=== PATIENT | female | born 1970 | race Caucasian/White ===

== ENCOUNTER 2018-03-26 06:35 | Emergency (ER) | payer BC, OTHER ==
[2018-03-26 06:46] VITALS: BP 130/83; PULSE 66; RESP 20; TEMP 98
--- NOTE | 2018-03-26 07:24 | XR ---
EXAM: XR Right Shoulder Complete, 3 Views. CLINICAL HISTORY: Reason: Pain TECHNIQUE: 3 views of the right shoulder. COMPARISON: No relevant prior studies available. FINDINGS: Bones: No acute fracture. Joints: No dislocation. Soft tissues: Unremarkable. IMPRESSION: No fracture or dislocation.
[2018-03-26] MEDS ORDERED: KETOROLAC 60 MG/2 ML VIAL IM STA (07:37)
[2018-03-26] MEDS ORDERED: CYCLOBENZAPRINE 10MG STARTER 3 TAB BTL PO STA (07:37)
[2018-03-26] MEDS ORDERED: ACET/COD 300 MG/30 MG STARTER PACK 6 TAB BTL PO STA (07:37)
--- NOTE | 2018-03-26 07:42 | ED ---
Upper Extremity HPI - General Chief Complaint: Extremity Injury, Upper Stated Complaint: shoulder injury Time Seen by Provider: 03/26/18 07:03 Source: patient, RN notes reviewed, old records reviewed Mode of arrival: ambulatory Limitations: no limitations - History of Present Illness Initial Comments: Patient is a 47 year old female whom presnts today with complaints Right shoulder pain. Patient reports that she pulled her shoulder while lifting drywall and also the lifting groceries yesterdayy. Patient states that she had pain with sleeping. She reports she is unable to lift her shoulder above her head. - Related Data Home Medications Medication Instructions Recorded Confirmed Multivitamins, Thera [Multivitamin 1 tab PO DAILY 03/26/18 03/26/18 (formulary)] Previous Rx's Medication Instructions Recorded Ibuprofen 600 mg PO TID #20 tablet 03/26/18 Allergies Allergy/AdvReac Type Severity Reaction Status Date / Time No Known Allergies Allergy Verified 03/26/18 07:45 Review of Systems ROS Statement: Those systems with pertinent positive or pertinent negative responses have been documented in the HPI. ROS Other: All systems not noted in ROS Statement are negative. Past Medical History Past Medical History: No Reported History History of Any Multi-Drug Resistant Organisms: None Reported Past Surgical History: No Surgical Hx Reported Past Psychological History: No Psychological Hx Reported Smoking Status: Never smoker Past Alcohol Use History: Occasional Past Drug Use History: None Reported General Exam - General Exam Comments Initial Comments: well appearing 47 year old female, no distress. Limitations: no limitations General appearance: alert, in no apparent distress Head exam: Present: atraumatic, normocephalic, normal inspection Eye exam: Present: normal appearance, PERRL, EOMI. Absent: scleral icterus, conjunctival injection, periorbital swelling ENT exam: Present: normal exam, mucous membranes moist Neck exam: Present: normal inspection. Absent: tenderness, meningismus, lymphadenopathy Respiratory exam: Present: normal lung sounds bilaterally. Absent: respiratory distress, wheezes, rales, rhonchi, stridor Cardiovascular Exam: Present: regular rate, normal rhythm, normal heart sounds. Absent: systolic murmur, diastolic murmur, rubs, gallop, clicks GI/Abdominal exam: Present: soft, normal bowel sounds. Absent: distended, tenderness, guarding, rebound, rigid Extremities exam: Present: normal inspection, full ROM, normal capillary refill. Absent: tenderness, pedal edema, joint swelling, calf tenderness Right Shoulder Exam: Present: normal inspection, tenderness. Absent: full ROM ( unable to preform above the head task, positive apply scratch test. ) Upper Arm exam: Present: normal inspection Elbow exam: Present: normal inspection, full ROM Back exam: Present: normal inspection Neurological exam: Present: alert, oriented X3, CN II-XII intact Psychiatric exam: Present: normal affect, normal mood Course Vital Signs 03/26/18 06:41 Temperature 98.0 F Pulse Rate 66 Respiratory 20 Rate Blood Pressure 130/83 O2 Sat by Pulse 100 Oximetry Medical Decision Making - Medical Decision Making Patient is a 47 year old female whom presents with R shoulder injury after lifting drywall and later grocery. She felt a pop in her shoulder yesterday, and had pain with sleeping. 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 She has normal shoulder xray. Discussed likely rotator cuff injury due to recent stress over shoulder, and from chronic lifting at her job. She has been advised to follow up with ortho. Will DC with antiinflammatory medication. - Radiology Data Radiology results: report reviewed Normal shoulder Xray, no acute fracture or dislocation. Disposition Clinical Impression: Injury of right rotator cuff Disposition: HOME SELF-CARE Condition: Good Instructions (If sedation given, give patient instructions): Rotator Cuff Injury (ED) Additional Instructions: Patient advised to practice range of motion. Apply ice to arm and shoulder. Wear sling intermittently. Follow up with Dr. Martínez. Return to ED if any alarming signs or symptoms occur. Prescriptions: Ibuprofen 600 mg PO TID #20 tablet Is patient prescribed a controlled substance at d/c from ED?: No Referrals: None,Stated [Primary Care Provider] - 1-2 days Perfecto Sheridan DO [Doctor of Osteopathic Medicine] - 1-2 days Brian Martínez DO [Doctor of Osteopathic Medicine] - 1-2 days Time of Disposition: 07:38
== END 2018-03-26 07:56 | disposition home or self-care (01) ==
LOC: EC 06:35
DX: S46.001A Unspecified injury of muscle(s) and tendon(s) of the rotator cuff of right shoulder, initial encounter (principal); X50.1XXA Overexertion from prolonged static or awkward postures, initial encounter; Y93.89 Activity, other specified
CPT/HCPCS: 99284; 96372; 73030; J1885

== ENCOUNTER → 2018-07-13 | Outpatient (CLI) | payer BC ==
[2018-07-13 15:27] LABS: HCT 42.8 % (34.0-46.0); MCH 29.2 pg (25.0-35.0); MCHC 32.7 g/dL (31.0-37.0); MCV 89.5 fL (80.0-100.0); Mean Platelet Volume 7.2; Platelet Count 276 k/uL (150-450); RBC 4.78 m/uL (3.80-5.40); RDW 12.4 % (11.5-15.5)
[2018-07-13 18:57] LABS: Anion Gap 8.3 mmol/L (4.00-12.00); Calcium 9.3 mg/dL (8.7-10.3); Carbon Dioxide 27.7 mmol/L (21.6-31.8); Potassium 3.9 mmol/L (3.5-5.5)
== END | disposition home or self-care (01) ==
LOC: LABWHC1 14:54
PROVIDERS: ATTEND Podiatrist Foot & Ankle Surgery
DX: Z01.812 Encounter for preprocedural laboratory examination (principal)
CPT/HCPCS: 36415; 80048; 85027

== ENCOUNTER 2018-08-01 11:36 | Day surgery (SDC) | payer BC ==
[~2018-08-01 11:36] MED LIST: DEXAMETHASONE SOD PHOSPHATE 10 MG/ML 1 ML VIAL IV ONE; HYDROmorphone 0.5 MG/0.5 ML SYRINGE IVP PRN; LACTATED RINGERS 1,000 ML IV SCH; LIDOCAINE 1% 20 ML VIAL (10MG/ML) FOR IV START INTRADERMA PRN; ONDANSETRON 4 MG/2 ML VIAL IVP ONE; Pre Op ABX Message 1 EACH MISC MISCELLANE ONE; SCOPOLAMINE 1.5MG/72HR PATCH TRANSDERM ONE
[2018-08-01 12:14] VITALS: TEMP 97.5
[2018-08-01] MEDS ORDERED: PROPOFOL 10 MG/ML 20 ML VIAL IV ONE (14:07)
[2018-08-01] MEDS ORDERED: KETAMINE 10 MG/ML 20 ML VIAL ONE (14:07)
[2018-08-01] MEDS ORDERED: fentaNYL (PF) 50 MCG/ML 2 ML AMP ONE (14:07)
[2018-08-01] MEDS ORDERED: MIDAZOLAM 2 MG/2 ML VIAL ONE (14:07)
[2018-08-01] MEDS ORDERED: LIDOCAINE 1% INJ 10MG/ML (20 ML MDV) ONE (14:07)
[2018-08-01] MEDS ORDERED: BUPIVACAINE (PF) 0.25% 30 ML VIAL SQ ONE (14:39)
--- NOTE | 2018-08-01 14:53 | P.PCN ---
Date of Procedure: 08/01/18 Preoperative Diagnosis: Hypertrophied bone medial side distal interphalangeal joint fifth digit left foot Postoperative Diagnosis: Same Procedure(s) Performed: Tarsal phalangectomy fifth digit left foot distal interphalangeal joint Surgeon: Derick Manning Operative Findings: Unremarkable
--- NOTE | 2018-08-01 14:57 | P.OP ---
Date of Procedure: 08/01/18 Preoperative Diagnosis: I. Hypertropied bone fifth digit left foot Postoperative Diagnosis: Same Surgeon: Derick Manning Operative Findings: Unremarkable Description of Procedure: On the date of surgery the patient was taken the operating room in good condition placed on the operating table supine position where an IV started and adequate IV anesthetic agents were utilized. Anesthesia was then further supplemented with approximately 3 mL of 0.25% plain Marcaine given in digital block to the fifth digit the patient's left foot Patient's left foot and ankle were then prepped and draped in usual aseptic manner and over heavy web roll padding an ankle tourniquet was placed above the malleoli of the patient's left ankle At this point in time attention was directed to the patient's left foot where the left foot and ankle were elevated and exsanguinated of blood utilizing an Esmarch bandage and after approximately 1 minutes. A time the ankle tourniquet was inflated to approximately 250 mmHg at this time attention was directed to the dorsal medial side of the distal interphalangeal joint fifth digit left foot where an approximately 0.25 cm linear incision was made the incision was deepened via sharp dissection down through the level of subcutaneous tissue layers all neurovascular structures were identified isolated and were retracted At this point in time utilizing rotary bur hyperostosis present on the medial side distal interphalangeal joint was craterized. Throughout the surgical procedure copious amounts sterile saline solution was used to irrigate the surgical site. Edges were then coaptated and maintained utilizing 4-0 nylon simple interrupted suture Adaptic Kerlix fluffs four-inch conformer 4 inch Coban was used to form a compression dressing and the ankle tourniquet to the left ankle was deflated adequate hemostatic return seen in all digits of the patient's left foot
[2018-08-01 15:02] VITALS: RESP 18
[2018-08-01 15:24] VITALS: BP 124/67; PULSE 65
== END 2018-08-01 15:35 | disposition home or self-care (01) ==
LOC: OR 11:36
PROVIDERS: ATTEND Podiatrist Foot & Ankle Surgery
DX: M89.372 Hypertrophy of bone, left ankle and foot (principal); K21.9 Gastro-esophageal reflux disease without esophagitis; Z79.82 Long term (current) use of aspirin; Z79.899 Other long term (current) drug therapy; Z90.49 Acquired absence of other specified parts of digestive tract

== ENCOUNTER 2018-08-31 08:29 | Emergency (ER) | payer BC ==
[2018-08-31 08:47] VITALS: RESP 18; TEMP 98.2
--- NOTE | 2018-08-31 09:20 | XR ---
EXAMINATION TYPE: XR chest 2V DATE OF EXAM: 08/31/2018 COMPARISON: Prior chest x-ray 05/04/2012 HISTORY: Cough, congestion, pain TECHNIQUE: Frontal and lateral views of the chest are obtained. FINDINGS: Surgical clips are present in the right upper quadrant. There is bronchial wall thickening. Patchy density present in the right lower lobe. Heart size is stable. No pneumothorax or pleural eff usion. IMPRESSION: Findings suggest right lower lobe pneumonia. Follow-up recommended.
--- NOTE | 2018-08-31 09:23 | ED ---
URI HPI - General Chief Complaint: Upper Respiratory Infection Stated Complaint: Cough Source: patient Mode of arrival: ambulatory Limitations: no limitations - History of Present Illness Initial Comments: 3-year-old female presented for cough congestion and ear pain for 1 week. Patient states she has an upper respiratory symptoms for the past week. Denies fevers. Patient states her cough has been productive. Patient states that she presented to the ER due to persistent cough. Patient denies chest pain or pressure. Patient denies hemoptysis or leg swelling. Denies history of DVT/PE or TB. Remaining ROS (-). Upon arrival patient appears well, afebrile. oxygenating well, no signs of distress. - Related Data Home Medications Medication Instructions Recorded Confirmed Multivitamins, Thera [Multivitamin 1 tab PO DAILY 03/26/18 07/26/18 (formulary)] Previous Rx's Medication Instructions Recorded Ibuprofen 600 mg PO TID #20 tablet 03/26/18 Azithromycin [Zithromax Z-pack] 0 mg PO DIRECTED #6 tab 08/31/18 Benzonatate [Tessalon Perles] 100 mg PO TID 5 Days #15 cap 08/31/18 predniSONE 20 mg PO BID 5 Days #10 tab 08/31/18 Allergies Allergy/AdvReac Type Severity Reaction Status Date / Time No Known Allergies Allergy Verified 08/31/18 08:43 Review of Systems ROS Statement: Those systems with pertinent positive or pertinent negative responses have been documented in the HPI. ROS Other: All systems not noted in ROS Statement are negative. Past Medical History Past Medical History: No Reported History History of Any Multi-Drug Resistant Organisms: None Reported Past Surgical History: Cholecystectomy, Orthopedic Surgery, Tubal Ligation Additional Past Surgical History / Comment(s): R foot, L foot Past Psychological History: No Psychological Hx Reported Smoking Status: Never smoker Past Alcohol Use History: Occasional Past Drug Use History: None Reported General Exam - General Exam Comments Initial Comments: General: The patient is awake and alert, in no distress, and does not appear acutely ill. Eye: +3 mm pupils are equal, round and reactive to light, extra-ocular movements are intact. No nystagmus. There is normal conjunctiva bilaterally. No signs of icterus. No photophobia Ears, nose, mouth and throat: There are moist mucous membranes and no oral lesions. Oropharynx was not erythematous there is no tonsillar enlargement exudates or lesions. Uvula midline. Tympanic membranes are not erythematous or is no effusions bulging or retraction. No tenderness to palpation of the mastoid. No anterior cervical lymphadenopathy. Rhinorrhea, clear and bilateral nares. No tripoding, no drooling. Neck: The neck is supple, there is no tenderness or JVD. Cardiovascular: There is a regular rate and rhythm. No murmur, rub or gallop is appreciated. Respiratory: Lungs are clear to auscultation, respirations are non-labored, breath sounds are equal. No wheezes, stridor, rales, or rhonchi. No retractions or abdominal breathing. Gastrointestinal: Soft, non-distended, non-tender abdomen without masses or organomegaly noted. There is no rebound or guarding present. Bowel sounds are unremarkable. Musculoskeletal: Normal ROM, no tenderness. Strength 5/5. Sensation intact. Radial pulses equal bilaterally 2+. Neurological: A&O x 3. CN II-XII intact, There are no obvious motor or sensory deficits. Coordination appears grossly intact. Speech appears normal, no muffling. Skin: Skin is warm and dry and no rashes or lesions are noted. No extremity edema Psychiatric: Cooperative Limitations: no limitations Course Vital Signs 08/31/18 08/31/18 08/31/18 08:43 08:48 10:21 Temperature 98.2 F 98.2 F Pulse Rate 86 63 Respiratory 18 18 18 Rate Blood Pressure 103/57 96/38 O2 Sat by Pulse 97 99 Oximetry Medical Decision Making - Medical Decision Making 29-year-old female presented for cough and upper respiratory symptoms. Evidence of a right lower lobe pneumonia. Patient is afebrile nontoxic appearing well. No elevation of heart rate or hypoxia. Patient's lungs sounds overall. Clear there is no obvious consolidations audible. At this time do feel patient still for discharge with 2 with azithromycin. Patient was given a single dose of ceftriaxone emergency department prior to discharge. In addition patient is prescribed prednisone. Return parameters were discussed at length. Case discussed Dr. Ortega. Patient was discharged appearing well agreeable to plan return parameters and discharge at this time. Disposition Clinical Impression: Community acquired pneumonia, Right lower lobe pneumonia, Cough, Sore throat Disposition: HOME SELF-CARE Instructions (If sedation given, give patient instructions): Pneumonia (ED) Additional Instructions: Please use medication as discussed. Please follow-up with family doctor in the next 2 days. Please return to emergency room if the symptoms increase or worsen or for any other concerns. Prescriptions: predniSONE 20 mg PO BID 5 Days #10 tab Benzonatate [Tessalon Perles] 100 mg PO TID 5 Days #15 cap Azithromycin [Zithromax Z-pack] 0 mg PO DIRECTED #6 tab Is patient prescribed a controlled substance at d/c from ED?: No Referrals: Shiraz Hernandez MD [Primary Care Provider] - 1-2 days Time of Disposition: 09:39
[2018-08-31] MEDS ORDERED: cefTRIAXone 1,000 MG VIAL (IM USE) IM STA (09:36)
[2018-08-31 10:22] VITALS: BP 96/38; PULSE 63
== END 2018-08-31 10:22 | disposition home or self-care (01) ==
LOC: EC 08:29
DX: J18.1 Lobar pneumonia, unspecified organism (principal); J02.9 Acute pharyngitis, unspecified
CPT/HCPCS: 71046; 96372; 99283; J0696

== ENCOUNTER → 2018-10-19 | Outpatient (CLI) | payer BC ==
--- NOTE | 2018-10-19 11:10 | XR ---
EXAMINATION TYPE: XR knee complete LT DATE OF EXAM: 10/19/2018 CLINICAL HISTORY: Nontraumatic left knee pain TECHNIQUE: Three views of the left knee are obtained. COMPARISON: None. FINDINGS: There is no acute fracture/dislocation evident in left knee. The tri-compartment joint sp aces appear within normal limits. There is small superior patellar pole osteophyte is seen. The over lying soft tissue appears unremarkable. IMPRESSION: There is no acute fracture or dislocation in the left knee. Minimal patellofemoral arthr opathy.
== END | disposition home or self-care (01) ==
LOC: RADXRMAIN 10:28
PROVIDERS: ATTEND Family Medicine
DX: M12.862 Other specific arthropathies, not elsewhere classified, left knee (principal)

== ENCOUNTER 2021-04-01 07:51 | Day surgery (SDC) | payer BC ==
[2021-03-29 16:09] VITALS: BMI 28.5
[~2021-04-01 07:51] MED LIST changes: -DEXAMETHASONE SOD PHOSPHATE 10 MG/ML 1 ML VIAL IV ONE; -HYDROmorphone 0.5 MG/0.5 ML SYRINGE IVP PRN; +LIDOCAINE 1% (10MG/ML) FOR IV START INTRADERMA PRN; -LIDOCAINE 1% 20 ML VIAL (10MG/ML) FOR IV START INTRADERMA PRN; -ONDANSETRON 4 MG/2 ML VIAL IVP ONE; -Pre Op ABX Message 1 EACH MISC MISCELLANE ONE; -SCOPOLAMINE 1.5MG/72HR PATCH TRANSDERM ONE
[2021-04-01 08:18] VITALS: TEMP 97
[2021-04-01] MEDS ORDERED: PROPOFOL 10 MG/ML 20 ML VIAL IV ONE (09:26)
--- NOTE | 2021-04-01 09:27 | P.GSHP ---
History of Present Illness H&P Date: 04/01/21 Chief Complaint: Screening colonoscopy This a 50-year-old female who presents today for screening colonoscopy. Patient denies any significant GI complaints. Past Medical History Past Medical History: No Reported History Additional Past Medical History / Comment(s): CURRENT: CORN BETWEEN 4 AND 5 TOE OF LEFT FOOT History of Any Multi-Drug Resistant Organisms: None Reported Past Surgical History: Cholecystectomy, Orthopedic Surgery, Tubal Ligation Additional Past Surgical History / Comment(s): BILAT FOOT SX Past Anesthesia/Blood Transfusion Reactions: No Reported Reaction Smoking Status: Former smoker - Past Family History Father Family Medical History: Cancer Medications and Allergies Home Medications Medication Instructions Recorded Confirmed Type No Known Home Medications 03/29/21 04/01/21 History Allergies Allergy/AdvReac Type Severity Reaction Status Date / Time No Known Allergies Allergy Verified 04/01/21 08:29 Surgical - Exam Vital Signs Temp Pulse Resp BP Pulse Ox 97.0 F L 78 14 122/61 99 04/01/21 08:15 04/01/21 08:15 04/01/21 08:15 04/01/21 08:15 04/01/21 08:15 - General well developed, well nourished, no distress - Eyes PERRL - ENT normal pinna - Neck no masses - Respiratory normal expansion - Cardiovascular Rhythm: regular - Abdomen Abdomen: soft, non tender Assessment and Plan Assessment: Perform screening colonoscopy
--- NOTE | 2021-04-01 09:45 | P.OP ---
Date of Procedure: 04/01/21 Preoperative Diagnosis: Screening colonoscopy Postoperative Diagnosis: Mild diverticulosis Internal and external hemorrhoids Procedure(s) Performed: Colonoscopy Anesthesia: MAC Surgeon: Dima Austin Pathology: none sent Condition: stable Disposition: PACU Description of Procedure: Patient's placed on the endoscopy table in the lateral position. She received IV sedation. Digital rectal exam was performed which revealed internal and external hemorrhoids. The flexible colonoscope was then placed patient anus and passed throughout the entire colon. The ileocecal valve was visualized. The cecum, ascending and transverse colon appeared normal. The descending and sigmoid colon had mild diverticular changes. Scope was then brought back the rectum and this appeared normal. The scope was withdrawn through the anus and internal and external hemorrhoids noted. The scope was withdrawn for patient.
[2021-04-01 09:50] VITALS: RESP 16
[2021-04-01 10:04] VITALS: BP 101/61; PULSE 65
== END 2021-04-01 10:48 | disposition home or self-care (01) ==
LOC: ORWHC2ENDO 07:51
PROVIDERS: ATTEND Surgery
DX: Z12.11 Encounter for screening for malignant neoplasm of colon (principal); K57.30 Diverticulosis of large intestine without perforation or abscess without bleeding; K64.4 Residual hemorrhoidal skin tags; L84 Corns and callosities; Z90.49 Acquired absence of other specified parts of digestive tract; Z98.51 Tubal ligation status; Z98.890 Other specified postprocedural states; Z87.891 Personal history of nicotine dependence; K21.9 Gastro-esophageal reflux disease without esophagitis
CPT/HCPCS: 81025; J2704; G0121

== ENCOUNTER → 2021-04-08 | Outpatient (CLI) | payer BC ==
--- NOTE | 2021-04-09 13:21 | MM ---
Reason for exam: screening (asymptomatic). Last mammogram was performed 2 years and 8 months ago. Physical Findings: A clinical breast exam by your physician is recommended on an annual basis and results should be correlated with mammographic findings. MG Screening Mammo w CAD Bilateral CC and MLO view(s) were taken. XCCL view(s) were taken of the right breast. Prior study comparison: August 06, 2018, bilateral MG screening mammo w CAD. April 23, 2010, bilateral digital screening mammo w/CAD. The breast tissue is heterogeneously dense. This may lower the sensitivity of mammography. There is chronic nodularity bilaterally. There is no dominant lesion. No significant changes when compared with prior studies. ASSESSMENT: Benign, BI-RAD 2 RECOMMENDATION: Routine screening mammogram of both breasts in 1 year.
== END | disposition home or self-care (01) ==
LOC: RADMAMWWP 14:36
PROVIDERS: ATTEND Family Medicine
DX: Z12.31 Encounter for screening mammogram for malignant neoplasm of breast (principal)
CPT/HCPCS: 77067

== ENCOUNTER 2022-10-07 11:01 | Emergency (ER) | payer BC, OTHER ==
--- NOTE | 2022-10-07 11:37 | ED ---
Back Pain HPI - General Source: patient, RN notes reviewed Mode of arrival: wheelchair Limitations: no limitations - History of Present Illness MD Complaint: back pain <Jennifer Mercado - Last Filed: 10/07/22 11:40> - General Source: patient, RN notes reviewed Mode of arrival: wheelchair Limitations: no limitations <Yasmin Ferrer - Last Filed: 10/07/22 19:42> - General Chief Complaint: Back Pain/Injury Stated Complaint: INJURY [facility] Time Seen by Provider: 10/07/22 11:35 - History of Present Illness Initial Comments: This is a 51 year old female who presents to the emergency department for left lower back pain. States that this started at work today when she went to stand up. The pain is constant but worse with movement. Denies any loss of bowel/bladder control. (Jennifer Mercado) 51-year-old female presents emergency Department with chief complaint of left lower back pain. 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 She states that she stood up and had sudden pain in her left sided lower back. She states that the pain is nonradiating. It is worse with walking or movement of her left leg. She states that she was able to walk following this but it was painful. She denies any loss of bowel or bladder function, numbness, saddle anesthesia, fever. She denies any significant past medical history. No known medication ALLERGIES. (Yasmin Ferrer) - Related Data Home Medications Medication Instructions Recorded Confirmed Multivitamins, Thera [Multivitamin 1 tab PO DAILY 04/04/22 04/04/22 (formulary)] Previous Rx's Medication Instructions Recorded HYDROcodone/APAP 5-325MG [[place] 1 tab PO Q6HR PRN #28 tab 04/08/22 5-325] Cyclobenzaprine [Flexeril] 5 mg PO TID PRN #15 tablet 10/07/22 Allergies Allergy/AdvReac Type Severity Reaction Status Date / Time No Known Allergies Allergy Verified 10/07/22 11:38 Review of Systems ROS Other: All systems not noted in ROS Statement are negative. <Jennifer Mercado - Last Filed: 10/07/22 11:40> ROS Other: All systems not noted in ROS Statement are negative. <Yasmin Ferrer - Last Filed: 10/07/22 19:42> ROS Statement: Those systems with pertinent positive or pertinent negative responses have been documented in the HPI. Past Medical History Past Medical History: No Reported History Additional Past Medical History / Comment(s): CURRENT: CORN BETWEEN 4 AND 5 TOE OF LEFT FOOT History of Any Multi-Drug Resistant Organisms: None Reported Past Surgical History: Cholecystectomy, Orthopedic Surgery, Tubal Ligation Additional Past Surgical History / Comment(s): R foot, L foot- corns removed. Past Anesthesia/Blood Transfusion Reactions: No Reported Reaction Additional Past Anesthesia/Blood Transfusion Reaction / Comment(s): Gets really bad heartburn. Past Psychological History: No Psychological Hx Reported Smoking Status: Former smoker Past Alcohol Use History: Occasional Additional Past Alcohol Use History / Comment(s): Quit smoking many years ago. Past Drug Use History: None Reported - Past Family History Father Family Medical History: Cancer <Jennifer Mercado - Last Filed: 10/07/22 11:40> General Exam <Jennifer Mercado - Last Filed: 10/07/22 11:40> Limitations: no limitations General appearance: alert, in no apparent distress Head exam: Present: atraumatic, normocephalic, normal inspection Eye exam: Present: normal appearance, PERRL, EOMI. Absent: scleral icterus, conjunctival injection, periorbital swelling ENT exam: Present: normal exam, mucous membranes moist Neck exam: Present: normal inspection. Absent: tenderness, meningismus, lymphadenopathy Respiratory exam: Present: normal lung sounds bilaterally. Absent: respiratory distress, wheezes, rales, rhonchi, stridor Cardiovascular Exam: Present: regular rate, normal rhythm, normal heart sounds. Absent: systolic murmur, diastolic murmur, rubs, gallop, clicks GI/Abdominal exam: Present: soft, normal bowel sounds. Absent: distended, tenderness, guarding, rebound, rigid Extremities exam: Present: normal inspection, full ROM, normal capillary refill. Absent: tenderness, pedal edema, joint swelling, calf tenderness Back exam: Present: normal inspection Neurological exam: Present: alert, oriented X3 Psychiatric exam: Present: normal affect, normal mood Skin exam: Present: warm, dry, intact, normal color. Absent: rash <Yasmin Ferrer - Last Filed: 10/07/22 19:42> - General Exam Comments Initial Comments: Visual Physical Exam Vital signs reviewed General: Well-appearing, nontoxic, no acute distress. Head: Normocephalic, atraumatic Eyes: PERRLA, EOMI ENT: Airway patent Chest: Nonlabored breathing Skin: No visual rash, normal skin tone Neuro: Alert and oriented 3 Musculoskeletal: No gross abnormalities I performed the QuickNote portion of this chart. Signed Jennifer Mercado PA-C. (Jennifer Mercado) Course Vital Signs 10/07/22 10/07/22 11:35 14:49 Temperature 98 F 97.9 F Pulse Rate 68 54 L Respiratory 18 16 Rate Blood Pressure 124/67 106/64 O2 Sat by Pulse 99 99 Oximetry Medical Decision Making <Yasmin Ferrer - Last Filed: 10/07/22 19:42> - Medical Decision Making Was pt. sent in by a medical professional or institution ([place], WAVE SOLDERING MACHINE OPERATOR, urgent care, hospital, or penitentiary...) When possible be specific @ -No Did you speak to anyone other than the patient for history (EMS, parent, family, police, friend...)? What history was obtained from this source @ -No Did you review nursing and triage notes (agree or disagree)? Why? @ -I reviewed and agree with nursing and triage notes Were old charts reviewed (outside hosp., previous admission, EMS record, old EKG, old radiological studies, urgent care reports/EKG's, penitentiary records)? Report findings @ -No old charts were reviewed Differential Diagnosis (chest pain, altered mental status, abdominal pain women, abdominal pain men, vaginal bleeding, weakness, fever, dyspnea, syncope, headache, dizziness, GI bleed, back pain, seizure, CVA, palpatations, mental health, musculoskeletal)? @ -Differential Back Pain: Strain, zoster, cauda equina syndrome, epidural abscess, vertebral osteomyelitis, discitis, fracture, subluxation, disc herniation, DJD, spinal stenosis, dissection, AAA, pancreatitis, peptic ulcer disease, pyelonephritis, kidney stone, this is not meant to be an all-inclusive list. EKG interpreted by me (3pts min.). @ -none X-rays interpreted by me (1pt min.). @ -X-ray lumbar spine shows no evidence for acute fracture, mild degenerative changes CT interpreted by me (1pt min.). @ -None done U/S interpreted by me (1pt. min.). @ -None done What testing was considered but not performed or refused? (CT, X-rays, U/S, labs)? Why? @ -None What meds were considered but not given or refused? Why? @ -None Did you discuss the management of the patient with other professionals (professionals i.e. , PA, WAVE SOLDERING MACHINE OPERATOR, lab, RT, psych nurse, social and political studies professor, property field adjuster, t eacher, neighborhood conservation officer, case monitor)? Give summary @ -No Was smoking cessation discussed for >3mins.? @ -No Was critical care preformed (if so, how long)? @ -No Were there social determinants of health that impacted care today? How? (Homelessness, low income, unemployed, alcoholism, drug addiction, transportation, low edu. Level, literacy, decrease access to med. care, custodial, rehab)? @ -No Was there de-escalation of care discussed even if they declined (Discuss DNR or withdrawal of care, Hospice)? DNR status @ -No What co-morbidities impacted this encounter? (DM, HTN, Smoking, COPD, CAD, Cancer, CVA, ARF, Chemo, Hep., AIDS, mental health diagnosis, sleep apnea, morbid obesity)? @ -None Was patient admitted / discharged? Hospital course, mention meds given and ro jamee, prescriptions, significant lab abnormalities, going to OR and other pertinent info. @ -discharged. Patient presented to emergency department with chief complaint of left-sided back pain that occurred when she stood up earlier today. He states the pain was sudden and sharp in nature. It is worse when she walks. Patient was treated with Norflex, Tylenol, lidocaine patch, Toradol which improved her symptoms. Patient was advised of findings on x-ray and prescription sent for Flexeril. Patient advised not to drive or operate heavy machinery while taking muscle relaxers. Patient stable at time of discharge. Case discussed with my attending, Dr. Edwards Undiagnosed new problem with uncertain prognosis? @ -No Drug Therapy requiring intensive monitoring for toxicity (Heparin, Nitro, Insulin, Cardizem)? @ -No Were any procedures done? @ -No Diagnosis/symptom? @ -mechanical back pain Acute, or Chronic, or Acute on Chronic? @ -acute Uncomplicated (without systemic symptoms) or Complicated (systemic symptoms)? @ -uncomplicated Side effects of treatment? @ -No Exacerbation, Progression, or Severe Exacerbation? @ -No Poses a threat to life or bodily function? How? (Chest pain, [place], [place], pneumonia, PE, COPD, DKA, ARF, appy, cholecystitis, CVA, Diverticulitis, Homicidal, Suicidal, threat to staff... and all critical care pts) @ -No (Yasmin Ferrer) Disposition <Jennifer Mercado - Last Filed: 10/07/22 11:40> Is patient prescribed a controlled substance at d/c from ED?: No Time of Disposition: 12:57 <Yasmin Ferrer - Last Filed: 10/07/22 19:42> Clinical Impression: Mechanical back pain Disposition: HOME SELF-CARE Condition: Stable Instructions (If sedation given, give patient instructions): Acute Low Back Pain (ED) Additional Instructions: Do not operate heavy machinery or drive while taking the muscle relaxer. Alternate Tylenol and Motrin for additional pain control. Follow up with [facility] for return to work. Prescriptions: Cyclobenzaprine [Flexeril] 5 mg PO TID PRN #15 tablet PRN Reason: Muscle Spasm Referrals: Shiraz Hernandez MD [Primary Care Provider] - 1-2 days
[2022-10-07] MEDS ORDERED: KETOROLAC 15 MG/ML 1 ML VIAL IM STA (12:01)
[2022-10-07] MEDS ORDERED: ORPHENADRINE 30 MG/ML 2 ML VIAL IM STA (12:01)
[2022-10-07] MEDS ORDERED: ACETAMINOPHEN TAB 500 MG TAB PO STA (12:03)
[2022-10-07] MEDS ORDERED: LIDOCAINE 5% PATCH TOPICAL STA (12:04)
--- NOTE | 2022-10-07 12:10 | XR ---
EXAMINATION TYPE: XR lumbar spine 2 or 3V DATE OF EXAM: 10/07/2022 11:52 AM INDICATION: Patient age:Female; 51 years old; Reason for study: Low back pain; COMPARISON: None TECHNIQUE: Frontal, lateral and coned in L5-S1 lateral views of the spine. FINDINGS: No evidence of any acute osseous pathology. No evidence of loss of vertebral body height i s seen. There is normal alignment of the lumbar vertebral bodies. Mild scattered disc space narrowing . Multilevel marginal osteophyte formation throughout the visualized spine. There is facet joint arth ropathy throughout the spine. Scattered at least mild neural foraminal stenosis. IMPRESSION: 1. No acute fracture. 2. Mild multilevel disc degeneration.
[2022-10-07 14:51] VITALS: BP 106/64; PULSE 54; RESP 16; TEMP 97.9
== END 2022-10-07 15:01 | disposition home or self-care (01) ==
LOC: EC 11:01
DX: M54.50 Low back pain, unspecified (principal); Z87.891 Personal history of nicotine dependence
CPT/HCPCS: 72100; 99284; 96372 ×2; J2360; J1885

== ENCOUNTER → 2023-03-17 | Outpatient (CLI) | payer BC ==
--- NOTE | 2023-03-20 07:41 | MM ---
Reason for Exam: Screening (asymptomatic). Last mammogram was performed 2 year(s) and 0 month(s) ago. Patient History: Menarche at age 10. First Full-Term at age 20. Postmenopausal. Other cancer. Risk Values: Jennifer 5 year model risk: 1.1%. NCI Lifetime model risk: 8.4%. Prior Study Comparison: 04/23/2010 Bilateral Screening Mammogram, [facility]. 08/06/2018 Bilateral Screening Mammogram, [facility]. 04/08/2021 Bilateral Screening Mammogram, [facility]. Tissue Density: The breast tissue is heterogeneously dense. This may lower the sensitivity of mammography. Findings: Analyzed By CAD. There is no suspicious group of microcalcifications or new suspicious mass. Overall Assessment: Negative, BI-RAD 1 Management: Screening Mammogram of both breasts in [address] [facility] will attempt to contact patient to return for supplemental views and ultrasound if indicated. Patient should continue monthly self-breast exams. A clinical breast exam by your physician is recommended on an annual basis. This exam should not preclude additional follow-up of suspicious palpable abnormalities. Note on Jennifer scores and lifetime risk: 1. A Jennifer score greater than 3% is considered moderate risk. If this is the case, consider specialist referral to assess eligibility for a risk reducing agent. 2. If overall lifetime risk for the development of breast cancer is 20% or higher, the patient may qualify for future screening with alternating mammogram and breast MRI. Electronically signed and approved by: Moris Coy DO
== END | disposition home or self-care (01) ==
LOC: RADMAMWWP 09:48
PROVIDERS: ATTEND Family Medicine
DX: Z12.31 Encounter for screening mammogram for malignant neoplasm of breast (principal); Z78.0 Asymptomatic menopausal state
CPT/HCPCS: 77067

== ENCOUNTER → 2024-04-10 | Outpatient (CLI) | payer BC ==
--- NOTE | 2024-04-10 15:02 | MM ---
Reason for Exam: Screening (asymptomatic). Last screening mammogram was performed 12 month(s) ago. Patient History: Menarche at age 10. First Full-Term at age 20. Postmenopausal. Other cancer. Risk Values: Jennifer 5 year model risk: 1.1%. NCI Lifetime model risk: 8.2%. Prior Study Comparison: 08/06/2018 Bilateral Screening Mammogram, [facility]. 04/08/2021 Bilateral Screening Mammogram, [facility]. 03/17/2023 Bilateral MG screening mammo w CAD, [facility]. Tissue Density: The breasts are heterogeneously dense, which may obscure small masses. Findings: Analyzed By CAD. Right breast: There is no suspicious group of microcalcifications or new suspicious mass. Left breast: There is no suspicious group of microcalcifications or new suspicious mass. Overall Assessment: Negative, BI-RAD 1 Management: Screening Mammogram of both breasts in [address] [facility] will attempt to contact patient to return for supplemental views and ultrasound if indicated. Patient should continue monthly self-breast exams. A clinical breast exam by your physician is recommended on an annual basis. This exam should not preclude additional follow-up of suspicious palpable abnormalities. Note on Jennifer scores and lifetime risk: 1. A Jennifer score greater than 3% is considered moderate risk. If this is the case, consider specialist referral to assess eligibility for a risk reducing agent. 2. If overall lifetime risk for the development of breast cancer is 20% or higher, the patient may qualify for future screening with alternating mammogram and breast MRI. [facility], , 04/10/2024 3:00 PM. Electronically signed and approved by: Moris Coy DO
== END | disposition home or self-care (01) ==
LOC: RADMAMWWP 14:17
PROVIDERS: ATTEND Family Medicine
DX: Z12.31 Encounter for screening mammogram for malignant neoplasm of breast (principal); R92.333 Mammographic heterogeneous density, bilateral breasts; Z78.0 Asymptomatic menopausal state
CPT/HCPCS: 77063; 77067